=== PATIENT | male | born 1995 ===

== ENCOUNTER → 2024-07-31 | Outpatient (CLI) | payer SELFPAY ==
[2024-08-04 06:28] LABS: APTIMA MEDIA TYPE Urine; C. TRACHOMATIS BY TMA Negative (Negative); N. GONORRHOEAE BY TMA Negative (Negative); SPECIMEN SOURCE Urine
== END ==
LOC: LAB 12:18 → LAB SHORT 12:18
PROVIDERS: Family Medicine
DX: Z20.2 Contact with and (suspected) exposure to infections with a predominantly sexual mode of transmission (principal)
CPT/HCPCS: 87491; 87591